=== PATIENT | female | born 1945 | race Caucasian/White ===

== ENCOUNTER 2017-07-18 13:12 | Emergency (ER) | payer MEDICARE ==
[2017-07-18 14:12] VITALS: BP 127/64
--- NOTE | 2017-07-18 15:16 | UC ---
Respiratory Complaint HPI - HPI Summary HPI Summary: C/O wheezing with cough x 5 days with some headache and right ear pain that has resolved. - History of Current Complaint Chief Complaint: UCRespiratory Stated Complaint: WHEEZING/COUGH/JACKMAN Time Seen by Provider: 07/18/17 15:07 Hx Obtained From: Patient Onset/Duration: Sudden Onset, Lasting Days - 5, Still Present Severity Initially: Moderate Severity Currently: Moderate Pain Intensity: 0 Character: Cough: Nonproductive Aggravating Factors: Deep Breaths, Recumbent Position Associated Signs And Symptoms: Positive: Dyspnea, Chills, Wheezing, URI, Nasal Congestion, Sinus Discomfort - in maxillary area.. Negative: Fever - Allergies/Home Medications Allergies/Adverse Reactions: Allergies Allergy/AdvReac Type Severity Reaction Status Date / Time lisinopril Allergy Swelling Verified 07/18/17 14:13 Of Face,Lips,& Throat B/P medication Allergy Swelling Uncoded 10/21/13 18:55 Of Face,Lips,& Throat Home Medications: Home Medications Albuterol HFA INHALER* [Ventolin HFA Inhaler*] 2 puff INH Q4H PRN 07/18/17 [ History Confirmed 07/18/17] Furosemide TAB* [Lasix TAB*] 20 mg PO DAILY 07/18/17 [History Confirmed 07/18/17 ] Levothyroxine TAB* [Synthroid TAB*] 50 mcg PO DAILY 07/18/17 [History Confirmed 07/18/17] Pravastatin Sodium 20 mg PO DAILY 07/18/17 [History Confirmed 07/18/17] Spiriva Inhaler DEVICE* [Tiotropium Inhaler DEVICE*] 2 inh INH DAILY 07/18/17 [ History Confirmed 07/18/17] PMH/Surg Hx/FS Hx/Imm Hx Endocrine History: Hypothyroidism Respiratory History: Asthma GI/ History: Gastroesophageal Reflux Psychological History: Anxiety Cancer History: Breast Cancer - Surgical History Surgical History: Yes Surgery Procedure, Year, and Place: tubal ligation - Family History Known Family History: Negative: Cardiac Disease, Hypertension, Diabetes - Social History Occupation: Retired Lives: With Family Alcohol Use: None Substance Use Type: None Smoking Status (MU): Never Smoked Tobacco Review of Systems Constitutional: Chills ENT: Ear Ache, Sinus Congestion Respiratory: Shortness Of Breath, Cough Is Patient Immunocompromised?: No All Other Systems Reviewed And Are Negative: Yes Physical Exam Triage Information Reviewed: Yes Appearance: No Pain Distress, Ill-Appearing, Obese Vital Signs: Initial Vital Signs Temp 100 F 07/18/17 14:04 Pulse 66 07/18/17 14:04 Resp 20 07/18/17 14:04 BP 127/64 07/18/17 14:04 Pulse Ox 96 07/18/17 14:04 Eye Exam: Normal Eyes: Positive: Conjunctiva Clear ENT: Positive: Pharynx normal, Nasal congestion, TMs normal Neck exam: Normal Respiratory: Positive: Wheezing - diffuse expiratory Cardiovascular Exam: Normal Musculoskeletal Exam: Normal Neurological Exam: Normal Psychological Exam: Normal Skin Exam: Normal UC Diagnostic Evaluation - Laboratory O2 Sat by Pulse Oximetry: 96 Respiratory Course/Dx - Differential Dx/Diagnosis Differential Diagnosis/HQI/PQRI: Exacerbation Of COPD, Lower Resp Infection, Sinusitis Provider Diagnoses: Acute URI. Acute sinusitis. Acute bronchospasm Discharge - Sign-Out/Discharge Documenting (check all that apply): Discharge/Admit/Transfer - Discharge Plan Condition: Stable Disposition: HOME Prescriptions: Amoxicillin PO (*) [Amoxicillin 875 MG (*)] 875 mg PO BID #20 tab predniSONE TAB* [Deltasone TAB*] 20 mg PO DAILY #18 tab Patient Education Materials: Upper Respiratory Infection (ED), Wheezing (ED), Sinusitis (ED), Amoxicillin (By mouth), Prednisone (By mouth) Referrals: Hailey Levy MD [Primary Care Provider] - - Billing Disposition and Condition Condition: STABLE Disposition: HOME
== END 2017-07-18 15:49 | disposition home or self-care (01) ==
LOC: UCCORT 13:12
DX: J06.9 Acute upper respiratory infection, unspecified (principal); J01.90 Acute sinusitis, unspecified; J45.909 Unspecified asthma, uncomplicated
CPT/HCPCS: 99212; G0463